=== PATIENT | male | born 1960 | race Caucasian/White ===

== ENCOUNTER 2017-08-11 23:35 | Emergency (ER) | payer OTHER ==
[~2017-08-11] VITALS: Ht 177.8 cm; Wt 117.9 kg
== END 2017-08-12 20:32 | disposition designated cancer center or children's hospital (05) ==
LOC: ER 23:35 → CPU-OBS 08-12 00:14 → ER 08-12 00:14
DX: I20.0 Unstable angina (principal); I10 Essential (primary) hypertension; R07.89 Other chest pain